=== PATIENT | female | born 1975 | race Asian ===

== ENCOUNTER 2024-07-12 20:04 | Emergency (ER) | payer MEDICAID ==
[~2024-07-12] VITALS: Ht 157.5 cm; Wt 50.0 kg
[2024-07-12 20:55] LABS: BASOPHILS # (AUTO) 0.1 X10'3 (0-0.2); BASOPHILS % (AUTO) 0.3 % (0-1); EOSINOPHILS # (AUTO) 0.2 X10'3 (0-0.9); LYMPHOCYTES # (AUTO) 1.3 X10'3 (1.1-4.8); RED BLOOD COUNT 3.06 X10'6 (4.20-5.60)
[2024-07-12 20:56] LABS: EOSINOPHILS % (AUTO) 1.1 % (0-6); HEMATOCRIT 28.7 % (35.0-45.0); HEMOGLOBIN 9.6 g/dl (12.0-16.0); LYMPHOCYTES % (AUTO) 6.3 % (21-51); MEAN CORPUSCULAR HEMOGLOBIN 31.5 PG (27.0-31.0); MEAN CORPUSCULAR HGB CONC 33.6 g/dL (33.0-36.5); MEAN CORPUSCULAR VOLUME 93.9 FL (78-98); MEAN PLATELET VOLUME 6.7 FL (7.4-10.4); MONOCYTES % (AUTO) 4.8 % (2-12); NEUTROPHILS # (AUTO) 17.8 X10'3 (1.8-7.7); NEUTROPHILS % (AUTO) 87.5 % (42-75); PLATELET COUNT 712 X10'3 (140-440); RED CELL DISTRIBUTION WIDTH 13.2 % (11.5-14.5); WHITE BLOOD COUNT 20.3 X10'3 (4.5-11.0)
[2024-07-12 21:09] LABS: ALANINE AMINOTRANSFERASE 42 U/L (12-78); ALBUMIN 2.7 G/DL (3.4-5.0); ALBUMIN/GLOBULIN RATIO 0.5 (1.1-1.5); ALKALINE PHOSPHATASE 255 IU/L (46-116); ANION GAP 8 (8-16); ASPARTATE AMINO TRANSFERASE 13 U/L (10-37); BILIRUBIN,TOTAL 0.8 MG/DL (0.1-1.0); BLOOD UREA NITROGEN 11 MG/DL (7-18); BUN/CREATININE RATIO 10.9 (10.0-20.0); CALCIUM 9.7 MG/DL (8.5-10.1); CHLORIDE 94 MMOL/L (99-107); CREATININE 1.01 MG/DL (0.40-0.90); GLUCOSE 304 MG/DL (70-104); LIPASE 49 U/L (16-77); POTASSIUM 4.7 MMOL/L (3.5-5.1); SODIUM 128 MMOL/L (135-145); TOTAL PROTEIN 8.5 G/DL (6.4-8.2); eCRCL 53 ML/MIN; eGFR 58 ML/MIN
[2024-07-12 22:17] LABS: EOSINOPHILS % (MANUAL) 1 % (0-6); LYMPHOCYTES % (MANUAL) 5 % (21-51); MONOCYTES % (MANUAL) 7 % (2-12); NEUTROPHILS % (MANUAL) 87 % (42-75); PLATELET ESTIMATE INCREASED; TOTAL CELLS COUNTED 100
[2024-07-12] MEDS ORDERED: iohexol 300mg/ml 100ml inj. ONE (22:37)
[2024-07-12] MEDS: normal saline 1000ML IV soln IV ONE (22:49)
[2024-07-12] MEDS: CefTRIAXone 2gm/D5W 50ml BAG 50 ML IV ONE (22:49)
[2024-07-13] MEDS: insulin regular, human 10 units/0.1 ml syringe IV ONE (00:25)
[2024-07-13 00:42] LABS: BILIRUBIN,URINE NEGATIVE (Neg); CLARITY,URINE CLEAR (Clear); COLOR,URINE YELLOW (Yellow); GLUCOSE, URINE 100 mg/dl (Neg); KETONES,URINE NEGATIVE (Neg); LEUKOCYTE ESTERASE ,URINE NEGATIVE (Neg); NITRITES, URINE NEGATIVE (Neg); OCCULT BLOOD,URINE NEGATIVE (Neg); PROTEIN,URINE NEGATIVE (Neg); UROBILINOGEN,URINE 0.2 E.U/dL (0.2-1.0)
[2024-07-13 00:48] LABS: UA COLLECTION TYPE CLN CATCH MIDSTREAM
[2024-07-13] MEDS ORDERED: ONDA-245 PO (01:11)
[2024-07-13 01:28] VITALS: BP 106/65; PULSE 91; RESP 14; TEMP 98.4; O2SAT 98
== END 2024-07-13 01:30 | disposition home or self-care (01) ==
LOC: ER 20:05
DX: K29.70 Gastritis, unspecified, without bleeding (principal); E86.0 Dehydration; H92.01 Otalgia, right ear; R50.9 Fever, unspecified; R55 Syncope and collapse
CPT/HCPCS: 36415; 70482; 70487; 80053; 81003; 82948; 83605; 83690; 84145; 85007; 85025; 87040; 93005; 96365; 96366; 96375; 99285; J0696; J1815; J7030; Q9967

== ENCOUNTER 2024-08-01 16:06 | Emergency (ER) | payer MEDICAID ==
[~2024-08-01] VITALS: Ht 154.9 cm; Wt 61.8 kg
[~2024-08-01 16:06] MED LIST: ONDA-245 PO
[2024-08-01 17:05] LABS: ALBUMIN 3.5 G/DL (3.4-5.0); ANION GAP 10 (8-16); BLOOD UREA NITROGEN 8 MG/DL (7-18); BUN/CREATININE RATIO 10.7 (10.0-20.0); CALCIUM 9.4 MG/DL (8.5-10.1); CHLORIDE 94 MMOL/L (99-107); CREATININE 0.75 MG/DL (0.40-0.90); GLUCOSE 134 MG/DL (70-104); POTASSIUM 3.6 MMOL/L (3.5-5.1); SODIUM 130 MMOL/L (135-145); TOTAL CARBON DIOXIDE 26.5 MMOL/L (24-32); eCRCL 68 ML/MIN; eGFR 82 ML/MIN
[2024-08-01 17:07] LABS: APTT 25 SECONDS (22-32); PROTHROMBIN TIME 10.5 SECONDS (9.0-12.0)
[2024-08-01 17:08] LABS: EOSINOPHILS # (AUTO) 0.1 X10'3 (0-0.9); MEAN PLATELET VOLUME 6.6 FL (7.4-10.4); MONOCYTES # (AUTO) 0.7 X10'3 (0-0.9)
[2024-08-01 17:10] LABS: BASOPHILS # (AUTO) 0.1 X10'3 (0-0.2); BASOPHILS % (AUTO) 0.6 % (0-1); HEMATOCRIT 33.3 % (35.0-45.0); LYMPHOCYTES # (AUTO) 1.9 X10'3 (1.1-4.8); LYMPHOCYTES % (AUTO) 14.7 % (21-51); MEAN CORPUSCULAR HEMOGLOBIN 30.9 PG (27.0-31.0); MEAN CORPUSCULAR VOLUME 93.7 FL (78-98); MONOCYTES % (AUTO) 5.4 % (2-12); NEUTROPHILS # (AUTO) 9.8 X10'3 (1.8-7.7); NEUTROPHILS % (AUTO) 78.3 % (42-75); PLATELET COUNT 644 X10'3 (140-440); RED BLOOD COUNT 3.56 X10'6 (4.20-5.60); RED CELL DISTRIBUTION WIDTH 15.2 % (11.5-14.5); WHITE BLOOD COUNT 12.6 X10'3 (4.5-11.0)
[2024-08-01 17:45] VITALS: TEMP 97.4
[2024-08-01] MEDS ORDERED: iohexol 350MG/ML 100ml bottle IV ONE (18:12)
[2024-08-01 20:13] LABS: BILIRUBIN,URINE NEGATIVE (Neg); CLARITY,URINE CLEAR (Clear); COLOR,URINE YELLOW (Yellow); GLUCOSE, URINE NEGATIVE (Neg); KETONES,URINE NEGATIVE (Neg); LEUKOCYTE ESTERASE ,URINE NEGATIVE (Neg); NITRITES, URINE NEGATIVE (Neg); OCCULT BLOOD,URINE NEGATIVE (Neg); PROTEIN,URINE NEGATIVE (Neg); UROBILINOGEN,URINE 0.2 E.U/dL (0.2-1.0)
[2024-08-01 20:16] LABS: UA COLLECTION TYPE CLN CATCH MIDSTREAM
[2024-08-01] MEDS: diphenhydrAMINE 50 mg/ml inj IV ONE (22:03)
[2024-08-01] MEDS: proCHLORperazine 10 MG/2 ml inj IV ONE (22:03)
[2024-08-01] MEDS: ketorolac trometh 30MG/ML vial 30 MG/ML VIAL IV ONE (22:04)
[2024-08-01 23:33] VITALS: BP 126/61; PULSE 103; RESP 19; O2SAT 97
== END 2024-08-01 23:37 | disposition home or self-care (01) ==
LOC: ER 16:07
DX: R51.9 Headache, unspecified (principal); E87.1 Hypo-osmolality and hyponatremia; D64.9 Anemia, unspecified; Z86.73 Personal history of transient ischemic attack (TIA), and cerebral infarction without residual deficits; Z79.899 Other long term (current) drug therapy
CPT/HCPCS: 36415; 70450; 70460; 71045; 80048; 81003; 82948; 85025; 85610; 85730; 86885; 86900; 86901; 93005; 96374; 96375; 99285; J0780; J1200; J1885; Q9967

== ENCOUNTER 2024-08-07 02:26 | Emergency (ER) | payer MEDICAID ==
[~2024-08-07] VITALS: Ht 154.9 cm; Wt 64.5 kg
[2024-08-07 02:47] VITALS: TEMP 99
[2024-08-07] MEDS ORDERED: OXYC-145 PO (04:53)
[2024-08-07] MEDS: cloNIDine 0.1 mg tablet PO STA (04:56)
[2024-08-07] MEDS: ketorolac trometh 30MG/ML vial 30 MG/ML VIAL IM ONE (04:59)
[2024-08-07] MEDS: ketorolac trometh 15mg/ml vial 15 MG/ML ML IM ONE ×2 (05:00→05:09)
[2024-08-07 05:21] VITALS: BP 139/89; PULSE 67; RESP 18; O2SAT 98
[2024-08-08] MEDS ORDERED: GABA100C PO (17:35)
== END 2024-08-07 05:22 | disposition home or self-care (01) ==
LOC: ER 02:26
DX: R51.9 Headache, unspecified (principal); I10 Essential (primary) hypertension; Z79.899 Other long term (current) drug therapy; Z86.73 Personal history of transient ischemic attack (TIA), and cerebral infarction without residual deficits
CPT/HCPCS: 96372; 99283; J1885

== ENCOUNTER 2024-08-08 12:03 | Emergency (ER) | payer MEDICAID ==
[~2024-08-08] VITALS: Ht 157.5 cm; Wt 65.0 kg
[~2024-08-08 12:03] MED LIST changes: +OXYC-145 PO
[2024-08-08 12:07] VITALS: TEMP 99.9
[2024-08-08] MEDS: diphenhydrAMINE 50 mg/ml inj IV ONE (15:06)
[2024-08-08] MEDS: acetaminophen 1,000mg/100ml IV 100 ML IV SCH (15:08)
[2024-08-08 15:24] LABS: BASOPHILS % (AUTO) 0.3 % (0-1); EOSINOPHILS # (AUTO) 0.1 X10'3 (0-0.9); EOSINOPHILS % (AUTO) 0.7 % (0-6); HEMATOCRIT 32.9 % (35.0-45.0); HEMOGLOBIN 11.3 g/dl (12.0-16.0); LYMPHOCYTES # (AUTO) 2.5 X10'3 (1.1-4.8); LYMPHOCYTES % (AUTO) 18.9 % (21-51); MEAN CORPUSCULAR HGB CONC 34.3 g/dL (33.0-36.5); MEAN CORPUSCULAR VOLUME 93.4 FL (78-98); MEAN PLATELET VOLUME 6.9 FL (7.4-10.4); NEUTROPHILS # (AUTO) 9.5 X10'3 (1.8-7.7); NEUTROPHILS % (AUTO) 72.1 % (42-75); PLATELET COUNT 572 X10'3 (140-440); RED BLOOD COUNT 3.52 X10'6 (4.20-5.60); RED CELL DISTRIBUTION WIDTH 15.8 % (11.5-14.5); WHITE BLOOD COUNT 13.1 X10'3 (4.5-11.0)
[2024-08-08] MEDS: chlorproMAZINE 25mg/ml inj. IV STA (15:41)
[2024-08-08 16:18] LABS: ALANINE AMINOTRANSFERASE 20 U/L (12-78); ALBUMIN 2.9 G/DL (3.4-5.0); ALBUMIN/GLOBULIN RATIO 0.6 (1.1-1.5); ALKALINE PHOSPHATASE 87 IU/L (46-116); ANION GAP 14 (8-16); ASPARTATE AMINO TRANSFERASE 15 U/L (10-37); BILIRUBIN,TOTAL 0.2 MG/DL (0.1-1.0); BLOOD UREA NITROGEN 13 MG/DL (7-18); BUN/CREATININE RATIO 16.7 (10.0-20.0); CALCIUM 8.8 MG/DL (8.5-10.1); CHLORIDE 102 MMOL/L (99-107); CREATININE 0.78 MG/DL (0.40-0.90); GLUCOSE 114 MG/DL (70-104); POTASSIUM 3.7 MMOL/L (3.5-5.1); SODIUM 135 MMOL/L (135-145); TOTAL CARBON DIOXIDE 19.2 MMOL/L (24-32); TOTAL PROTEIN 7.8 G/DL (6.4-8.2); eCRCL 68 ML/MIN; eGFR 78 ML/MIN
[2024-08-08] MEDS ORDERED: GABA100C PO (17:35)
[2024-08-08 18:02] VITALS: BP 136/74; PULSE 71; RESP 16; O2SAT 96
[2024-08-08] MEDS ORDERED: acetaminophen 1,000mg/100ml IV 100 ML IV SCH ×2 (20:00)
== END 2024-08-08 18:17 | disposition home or self-care (01) ==
LOC: ER 12:04
DX: R51.9 Headache, unspecified (principal); R11.0 Nausea; Z79.899 Other long term (current) drug therapy; Z86.73 Personal history of transient ischemic attack (TIA), and cerebral infarction without residual deficits; Z79.02 Long term (current) use of antithrombotics/antiplatelets
CPT/HCPCS: 36415; 80053; 85025; 96365; 96375; 99285; J0131; J1200; J3230